=== PATIENT | male | born 1950 | race Caucasian/White ===

== ENCOUNTER → 2016-08-27 | Outpatient (CLI) | payer OTHER ==
--- NOTE | 2016-08-27 15:25 | US ---
EXAMINATION TYPE: US kidneys/renal and bladder DATE OF EXAM: 08/27/2016 2:45 PM COMPARISON: NONE CLINICAL HISTORY: R33.9 Retention of Urine Unspec. EXAM MEASUREMENTS: Right Kidney: 10.5 x 4.5 x 4.8 cm Left Kidney: 10.7 x 5.3 x 4.9 cm Post Void Residual Volume: 77.5 Right Kidney: No hydronephrosis or masses seen Left Kidney: No hydronephrosis or masses seen Bladder: not fully distended Abnormal Post Void Residual 77.5 cc There is no evidence for hydronephrosis at this point in time. No nephrolithiasis is seen. No stan s are identified. The urinary bladder is anechoic. Neither ureteral jets were seen. IMPRESSION: 1. NORMAL RENAL ULTRASOUND. 2. ABNORMALLY HIGH POST VOID RESIDUAL.
== END | disposition home or self-care (01) ==
LOC: RADUSWWP 14:05
PROVIDERS: ATTEND Family Medicine
DX: R93.49 Abnormal radiologic findings on diagnostic imaging of other urinary organs (principal); R33.9 Retention of urine, unspecified
CPT/HCPCS: 76770

== ENCOUNTER → 2017-12-27 | Outpatient (CLI) | payer MEDICARE, OTHER ==
[2017-12-27 08:32] LABS: ALT 44 U/L (21-72); AST 47 U/L (17-59); Albumin 4.7 g/dL (3.5-5.0); Alkaline Phosphatase 77 U/L (38-126); Anion Gap 14 mmol/L; Blood Urea Nitrogen 15 mg/dL (9-20); Calcium 9.6 mg/dL (8.4-10.2); Carbon Dioxide 19 mmol/L (22-30); Chloride 108 mmol/L (98-107); Glucose 122 mg/dL (74-99); Sodium 141 mmol/L (137-145); Total Bilirubin 0.8 mg/dL (0.2-1.3); Total Protein 8.9 g/dL (6.3-8.2)
[2017-12-27 08:40] LABS: Potassium 4.3 mmol/L (3.5-5.1)
--- NOTE | 2017-12-27 09:21 | FL ---
EXAMINATION TYPE: FL barium swallow DATE OF EXAM: 12/27/2017 CLINICAL HISTORY: Dysphagia with solids and liquids TECHNIQUE: A double contrast esophagram is performed utilizing air and barium. A total of 2 and 33 seconds of fluoroscopic time was utilized during procedure. 44 fluoroscopic images were saved. COMPARISON: None FINDINGS: The esophagus shows abnormal motility and delayed emptying into the stomach secondary to a nonobstructive narrowing just proximal to the gastroesophageal junction persistent on multiple views. In the upright position there is stasis of contrast in the distal esophagus proximal to this area of narrowing until a second swallow of contrast creates enough back pressure to overcome the stricture with eventual passage of contrast through the narrowing into the gastroesophageal junction. There is nonpropulsion of contrast through the midesophagus in the supine position. Moderate intraesophageal r eflux is noted to the level of the mid thoracic esophagus. No evidence of hiatal hernia. No significa nt gastroesophageal reflux was seen during real time performance of this study. Additionally trace pe netration is noted on 2 occasions. No evidence of aspiration. IMPRESSION: 1. Incomplete smooth long segment distal esophageal stricture just proximal to the gastroesophageal j unction. Endoscopy could further assess the stricture etiology. No suspicion for underlying mass as t here is no abrupt narrowing or edge. 2. Trace penetration on 2 occasions eliciting cough reflex with no aspiration. Speech therapy consult ation could be considered.
[2017-12-27 09:35] LABS: Basophils % (A) 1 %; Eosinophils # (A) 0.3 k/uL (0-0.7); Eosinophils % (A) 4 %; HCT 38.4 % (39.0-53.0); HGB 12.5 gm/dL (13.0-17.5); Lymphocytes # (A) 1.6 k/uL (1.0-4.8); Lymphocytes % (A) 26 %; MCH 27.3 pg (25.0-35.0); MCHC 32.5 g/dL (31.0-37.0); MCV 83.9 fL (80.0-100.0); Mean Platelet Volume 8.5; Monocytes # (A) 0.5 k/uL (0-1.0); Monocytes % (A) 9 %; Neutrophils # (A) 3.6 k/uL (1.3-7.7); Neutrophils % (A) 58 %; Platelet Count 183 k/uL (150-450); RBC 4.58 m/uL (4.30-5.90); RDW 14.2 % (11.5-15.5); WBC 6.2 k/uL (3.8-10.6)
[2017-12-27 16:06] LABS: Protein, Total 8.2 g/dL (6.2-8.2)
[2017-12-30 13:29] LABS: Albumin 4.33 g/dL (3.80-4.90)
== END | disposition home or self-care (01) ==
LOC: RADFLWHC 07:38
PROVIDERS: ATTEND Physician Assistant Medical
DX: K22.2 Esophageal obstruction (principal); J44.9 Chronic obstructive pulmonary disease, unspecified; I10 Essential (primary) hypertension; R77.1 Abnormality of globulin
CPT/HCPCS: 36415; 74220; 80053; 83880; 84165; 85025

== ENCOUNTER 2018-04-07 10:55 | Emergency (ER) | payer MEDICARE, OTHER ==
[2018-04-07 11:12] VITALS: BP 165/90; PULSE 76; RESP 16; TEMP 98.3
[2018-04-07] MEDS ORDERED: diphenhydrAMINE 50 MG/ML 1 ML VIAL IVP STA (11:31)
[2018-04-07] MEDS ORDERED: METOCLOPRAMIDE 5 MG/ML 2 ML VIAL IVP STA (11:31)
[2018-04-07] MEDS ORDERED: SODIUM CHLORIDE 0.9% 1,000 ML IV STA (11:31)
--- NOTE | 2018-04-07 11:47 | ED ---
General Adult HPI - General Chief complaint: Headache Stated complaint: Headache Time Seen by Provider: 04/07/18 11:20 Source: patient, RN notes reviewed Mode of arrival: wheelchair Limitations: no limitations - History of Present Illness Initial comments: Patient 68-year-old male presented to the emergency room today with chief complaint of a headache. He does admit that symptoms started 2 days ago. He states that he does have history of sinus infection. He states she's had increased sinus pressure on the right side. Patient currently rates it a 12/10. Does admit to increased rhinorrhea. Admits to cough congestion with positive sputum production that is been green in color. Patient states he was coming to the hospital have routine lab draw. States that he decided to come to the ER to be checked out. Patient does admit that he had a few episodes nausea and vomiting yesterday. Patient denies any recent fever, chills, shortness of breath, chest pain, back pain, abdominal pain, numbness or tingling, dysuria or hematuria, constipation or diarrhea, visual changes, or any other complaints. - Related Data Home Medications Medication Instructions Recorded Confirmed Citalopram Hydrobromide [CeleXA] 20 mg PO DAILY 03/30/15 04/07/18 Albuterol Sulfate [Proair Hfa] 1 - 2 puff INHALATION Q6HR PRN 04/07/18 04/07/18 Budesonide [Pulmicort Flexhaler] 1 puff INHALATION RT-BID 04/07/18 04/07/18 Buprenorphine HCl/Naloxone HCl 0.5 film SL DAILY@1200 04/07/18 04/07/18 [Suboxone 8 mg-2 mg Sl Film] Buprenorphine HCl/Naloxone HCl 1 film SL BID 04/07/18 04/07/18 [Suboxone 8 mg-2 mg Sl Film] Cetirizine HCl [Zyrtec] 10 mg PO DAILY 04/07/18 04/07/18 Gabapentin 600 mg PO TID 04/07/18 04/07/18 Hydrochlorothiazide [Hydrodiuril] 12.5 mg PO DAILY 04/07/18 04/07/18 Ibuprofen [Motrin] 600 mg PO BID PRN 04/07/18 04/07/18 Ipratropium-Albuterol Nebulize 3 ml INHALATION Q6H PRN 04/07/18 04/07/18 [Duoneb 0.5 mg-3 mg/3 ml Soln] Lisinopril 40 mg PO DAILY 04/07/18 04/07/18 Multivitamins, Thera [Multivitamin 1 tab PO DAILY 04/07/18 04/07/18 (formulary)] amLODIPine [Norvasc] 10 mg PO DAILY 04/07/18 04/07/18 cloNIDine HCL [Catapres] 0.3 mg PO TID 04/07/18 04/07/18 Previous Rx's Medication Instructions Recorded Amoxicillin/Potassium Clav 1 each PO Q12HR #20 tab 04/07/18 [Augmentin 875-125 Tablet] Fluticasone Propionate [Flonase 1 - 2 spray EA NOSTRIL DAILY 5 04/07/18 Allergy Relief] Days ml Allergies Allergy/AdvReac Type Severity Reaction Status Date / Time No Known Allergies Allergy Verified 04/07/18 11:54 Review of Systems ROS Statement: Those systems with pertinent positive or pertinent negative responses have been documented in the HPI. ROS Other: All systems not noted in ROS Statement are negative. Past Medical History Past Medical History: Hypertension Additional Past Medical History / Comment(s): bipolar History of Any Multi-Drug Resistant Organisms: None Reported Past Surgical History: Orthopedic Surgery Additional Past Surgical History / Comment(s): shoulder Past Psychological History: Bipolar Smoking Status: Current every day smoker Past Alcohol Use History: Occasional Past Drug Use History: None Reported General Exam - General Exam Comments Initial Comments: General: The patient is awake and alert, in no distress, and does not appear acutely ill. Eye: Pupils are equal, round and reactive to light. Extra-ocular movements are intact. No nystagmus. There is normal conjunctiva bilaterally. No signs of icterus. Ears, nose, mouth and throat: There are moist mucous membranes and no oral lesions. Tender palpation over the right maxillary and frontal sinuses. Neck: The neck is supple, there is no tenderness or JVD. Cardiovascular: There is a regular rate and rhythm. No murmur, rub or gallop is appreciated. Respiratory: Lungs are clear to auscultation, respirations are non-labored, breath sounds are equal. No wheezes, stridor, rales, or rhonchi. Gastrointestinal: Soft, non-distended, non-tender abdomen without masses or organomegaly noted. There is no rebound or guarding present. No CVA tenderness. Musculoskeletal: Normal ROM, no tenderness. Sensation intact. Strength 5/5. Pulses equal bilaterally 2+. Neurological: A&O x 3. CN II-XII intact, There are no obvious motor or sensory deficits. Coordination appears grossly intact. Speech is normal. Skin: Skin is warm and dry and no rashes or lesions are noted. Psychiatric: Cooperative, appropriate mood & affect, normal judgment. Limitations: no limitations Course Vital Signs 04/07/18 11:09 Temperature 98.3 F Pulse Rate 76 Respiratory 16 Rate Blood Pressure 165/90 O2 Sat by Pulse 97 Oximetry Medical Decision Making - Medical Decision Making Patient's CT of the head was negative for any acute abnormalities. Patient's old records will be obtained here in the emergency room. Patient had repeated attempts to have blood drawn. Nursing staff was unable to get any blood work. Patient then refused any further attempts. Patient urine sample reviewed no signs of infection. Urine sample clean. Patient does admit that these headaches are similar to sinus infections that she's had in the past but does have tenderness over the sinuses. His refused any further blood testing here in emergency room. He will be treated for sinus infection. Patient also admits that she's had some burning sensation with urination is worried about possible sexually transmitted disease. Patient will be treated given dose of azithromycin and Rocephin here in emergency room. Cultures have been added are currently pending. Patient is advised follow-up stab doctor over the next 2 days return here to emergency room for any other concerns. - Lab Data Lab Results 04/07/18 Range/Units 12:13 Urine Color Yellow Urine Appearance Clear (Clear) Urine pH 7.5 (5.0-8.0) Ur Specific Slaughter 1.024 (1.001-1.035) Urine Protein 1+ H (Negative) Urine Glucose (UA) Negative (Negative) Urine Ketones Negative (Negative) Urine Blood Negative (Negative) Urine Nitrite Negative (Negative) Urine Bilirubin Negative (Negative) Urine Urobilinogen 6.0 (<2.0) mg/dL Ur Leukocyte Esterase Negative (Negative) Urine RBC 1 (0-5) /hpf Urine WBC <1 (0-5) /hpf Urine Mucus Few H (None) /hpf Urine Opiates Screen Not Detected (NotDetected) Ur Oxycodone Screen Not Detected (NotDetected) Urine Methadone Screen Not Detected (NotDetected) Ur Propoxyphene Screen Not Detected (NotDetected) Ur Barbiturates Screen Not Detected (NotDetected) U Tricyclic Antidepress Not Detected (NotDetected) Ur Phencyclidine Scrn Not Detected (NotDetected) Ur Amphetamines Screen Not Detected (NotDetected) U Methamphetamines Scrn Not Detected (NotDetected) U Benzodiazepines Scrn Not Detected (NotDetected) Urine Cocaine Screen Not Detected (NotDetected) U Marijuana (THC) Screen Not Detected (NotDetected) Disposition Clinical Impression: Headache, Sinusitis, Concern about STD in male without diagnosis Disposition: HOME SELF-CARE Condition: Good Instructions: Acute Headache (ED) Additional Instructions: Please follow-up the family doctor over the next 2 days. Please use medications as prescribed. Please refrain from any contact until all symptoms are completely resolved. Return to emergency room for symptoms increase or worsen or for concerns. Prescriptions: Amoxicillin/Potassium Clav [Augmentin 875-125 Tablet] 1 each PO Q12HR #20 tab Fluticasone Propionate [Flonase Allergy Relief] 1 - 2 spray EA NOSTRIL DAILY 5 Days ml Is patient prescribed a controlled substance at d/c from ED?: No Referrals: [facility] [Primary Care Provider] - 1-2 days Time of Disposition: 13:19
--- NOTE | 2018-04-07 12:38 | CT ---
EXAMINATION TYPE: CT brain wo con DATE OF EXAM: 04/07/2018 COMPARISON: 03/22/2015 HISTORY: headache today with weakness CT DLP: 1155.[address] of the brain was performed. The ventricles, basal cisterns and sulci overlying the cerebral convexities demonstrate mild enlargem ent. There is no evidence for intracranial hemorrhage or sulcal effacement. There is decreased attenuation about the periventricular white matter and deep white matter of both c erebral hemispheres, compatible with chronic small vessel ischemia. Differential diagnosis does inclu de demyelination. No mass effects are seen.No midline shift. Osseous calvarium is intact. If symptoms persist consider MRI. IMPRESSION: 1. Age related atrophic and chronic small vessel ischemic change without acute intracranial process s een at this time.
[2018-04-07 12:53] LABS: Appearance,Urine Clear (Clear); Bilirubin,Urine Negative (Negative); Blood,Urine Negative (Negative); Color,Urine Yellow; Glucose,Urine (UA) Negative (Negative); Ketones,Urine Negative (Negative); Leukocyte Esterase,Urine Negative (Negative); Mucus,Urine Few /hpf; Nitrite,Urine Negative (Negative); PH, Urine 7.5 (5.0-8.0); Protein,Urine 1+ (Negative); RBC,Urine 1 /hpf (0-5); Specific Gravity,Urine 1.024 (1.001-1.035)
[2018-04-07 12:57] LABS: Amphetamine Screen,Urine Not Detected (NotDetected); Barbiturate Screen,Urine Not Detected (NotDetected); Benzodiazepines Screen,Urine Not Detected (NotDetected); Cocaine Screen,Urine Not Detected (NotDetected); Methadone Screen, Urine Not Detected (NotDetected); Opiate Screen,Urine Not Detected (NotDetected); Oxycodone Screen, Urine Not Detected (NotDetected); Phencyclidine Screen,Urine Not Detected (NotDetected); Tricyclic Antidepressant,Urine Not Detected (NotDetected); Urn Cannabinoid Scrn Not Detected (NotDetected)
[2018-04-07] MEDS ORDERED: AZITHROMYCIN 500 MG TAB PO STA (13:14)
[2018-04-07] MEDS ORDERED: cefTRIAXone 250 MG VIAL IM STA (13:14)
[2018-04-08 14:26] LABS: C. trachomatis,PCR Negative (Neg,Equiv); Chlamydia trachomatis Source Urine; N. gonorrhoeae,PCR Negative (Neg,Equiv); Neisseria Source Urine
== END 2018-04-07 13:41 | disposition home or self-care (01) ==
LOC: EC 10:55
DX: J32.9 Chronic sinusitis, unspecified (principal); Z20.2 Contact with and (suspected) exposure to infections with a predominantly sexual mode of transmission; R11.2 Nausea with vomiting, unspecified; I10 Essential (primary) hypertension; F31.9 Bipolar disorder, unspecified; F17.200 Nicotine dependence, unspecified, uncomplicated; Z79.51 Long term (current) use of inhaled steroids; Z79.899 Other long term (current) drug therapy
CPT/HCPCS: 93005; 81001; 87491; 87591; 80306; 70450; 99284; 96372; J0696

== ENCOUNTER → 2018-09-17 | Outpatient (CLI) | payer MEDICARE, OTHER ==
[2018-09-17 15:12] LABS: Basophils % (A) 0 %; Eosinophils # (A) 0.1 k/uL (0-0.7); Eosinophils % (A) 2 %; HCT 40.4 % (39.0-53.0); Lymphocytes # (A) 1.6 k/uL (1.0-4.8); Lymphocytes % (A) 24 %; MCH 27.6 pg (25.0-35.0); MCHC 32.1 g/dL (31.0-37.0); MCV 85.8 fL (80.0-100.0); Mean Platelet Volume 8.2; Monocytes # (A) 0.5 k/uL (0-1.0); Monocytes % (A) 7 %; Neutrophils # (A) 4.2 k/uL (1.3-7.7); Neutrophils % (A) 63 %; Platelet Count 184 k/uL (150-450); RDW 14.8 % (11.5-15.5); WBC 6.7 k/uL (3.8-10.6)
[2018-09-17 15:14] LABS: ALT 53 U/L (21-72); AST 56 U/L (17-59); Albumin 4.7 g/dL (3.5-5.0); Alkaline Phosphatase 75 U/L (38-126); Anion Gap 8 mmol/L; Blood Urea Nitrogen 13 mg/dL (9-20); Calcium 9.5 mg/dL (8.4-10.2); Carbon Dioxide 27 mmol/L (22-30); Chloride 105 mmol/L (98-107); Cholesterol 170 mg/dL (<200); Glucose 97 mg/dL (74-99); HDL Cholesterol 53 mg/dL (40-60); LDL Cholesterol,Calculated 96 mg/dL (0-99); Magnesium 1.3 mg/dL (1.6-2.3); Potassium 4.6 mmol/L (3.5-5.1); Sodium 140 mmol/L (137-145); Total Bilirubin 0.9 mg/dL (0.2-1.3); Total Protein 8.6 g/dL (6.3-8.2); Triglycerides 106 mg/dL (<150)
[2018-09-17 15:27] LABS: T4, Free (Free Thyroxine) 1.13 ng/dL (0.78-2.19)
[2018-09-17 19:01] LABS: Protein, Total 7.4 g/dL (6.2-8.2)
[2018-09-17 19:10] LABS: Vitamin D 25 Hydroxy 50.5 ng/mL (30.0-100.0)
[2018-09-18 12:23] LABS: Albumin 3.84 g/dL (3.80-4.90); Gamma Globulin 1.71 g/dL (0.70-1.50)
== END | disposition home or self-care (01) ==
LOC: RADCTMAIN 13:50
PROVIDERS: ATTEND Thoracic Surgery (Cardiothoracic Vascular Surgery)
DX: I71.2 Thoracic aortic aneurysm, without rupture (principal)
CPT/HCPCS: 80053; 80061; 82306; 82607; 83735; 84165; 84439; 84443; 85025

== ENCOUNTER → 2018-09-23 | Day surgery (SDC) | payer MEDICARE, OTHER ==
[2018-09-18 14:41] VITALS: BMI 34.4
[2018-09-23 10:09] VITALS: BP 160/97; RESP 18; TEMP 98
[2018-09-23 10:28] LABS: Blood Urea Nitrogen 11 mg/dL (9-20)
--- NOTE | 2018-09-23 13:38 | CT ---
EXAMINATION TYPE: CT angio chest DATE OF EXAM: 09/23/2018 COMPARISON: Radiograph 09/09/2018 HISTORY: 68-year-old male Thoracic aneurysm TECHNIQUE: Contiguous axial scanning of the chest performed with IV Contrast, patient injected with 1 00 mL of Isovue 370. Coronal/sagittal MIP reconstructions performed. 3-D reconstructions generated on a dedicated independent workstation. CT DLP: 498 mGycm Automated exposure control for dose reduction was used. FINDINGS: Retained metal particle in the left axilla and also in the anterior right mid chest. Heart upper limits of normal in size without pericardial effusion. Borderline ectatic ascending aorta at 3.6 cm. Ectatic ascending aorta 3.6 cm. Bovine configuration to the aortic arch. Upper descending thoracic aorta aneurysmal at 3.5 cm. Mid descending thoracic aorta is ectatic at 2.8 cm. Lower descending thoracic aorta ectatic at 2.7 cm. Upper abdominal aorta normal caliber at 2.3 cm. Prominent but nonenlarged 1.2 cm left axillary lymph node. No thoracic lymphadenopathy by CT size cri teria. Strandy atelectasis or scarring in the lung bases and posterior right lung. Mild underlying centrilob ular emphysema. Calcified granuloma superior segment left lower lobe at the midlung level. No consoli dation or pleural effusion. Visualized upper abdomen shows some retained metal debris within the posterior right pararenal space. Also at the left posterior costophrenic angle. Some wedge-shaped vascular shunting in the right live r lobe is noted. Some minimal residual infiltrate remains at the peripheral left base. Bones: ACDF hardware. Scattered [id number] degenerative disc disease midthoracic spine. IMPRESSION: 1. ECTATIC ASCENDING AORTA (3.6 CM), ANEURYSMAL UPPER DESCENDING THORACIC AORTA (3.5 CM), AND ECTATIC REMAINDER OF THE DESCENDING THORACIC AORTA MEASURING UP TO 2.8 CM. 2. SCATTERED RETAINED METALLIC DEBRIS, QUERY PRIOR GUNSHOT OR OTHER PENETRATING INJURY. 3. SOME MINIMAL RESIDUAL INFILTRATE REMAINS AT THE PERIPHERAL LEFT BASE. CONSIDER RADIOGRAPHIC FOLLOW -UP. 4. COPD WITH MILD EMPHYSEMA.
== END ==
LOC: CATHCVL 09:01
PROVIDERS: ATTEND Thoracic Surgery (Cardiothoracic Vascular Surgery)
DX: I71.2 Thoracic aortic aneurysm, without rupture (principal); Z79.899 Other long term (current) drug therapy; I10 Essential (primary) hypertension; E66.9 Obesity, unspecified; Z68.34 Body mass index [BMI] 34.0-34.9, adult; F17.210 Nicotine dependence, cigarettes, uncomplicated
CPT/HCPCS: 82565; 84520; 71275; Q9967

== ENCOUNTER → 2019-04-20 | Outpatient (CLI) | payer MEDICARE, OTHER ==
[2019-04-20 10:27] LABS: ALT 39 U/L (21-72); AST 35 U/L (17-59); African American GFR (CKD) >90 (>60 ml/min/1.73 sqM); Albumin 4.2 g/dL (3.5-5.0); Alkaline Phosphatase 70 U/L (38-126); Bilirubin, Delta 0.3 mg/dL (0.0-0.2); Bilirubin,Unconjugated 0.1 mg/dL (0.0-1.1); Blood Urea Nitrogen 14 mg/dL (9-20); Total Bilirubin 0.4 mg/dL (0.2-1.3); Total Protein 8.3 g/dL (6.3-8.2)
[2019-04-20 10:42] LABS: Prothrombin Time 10.5 sec (9.0-12.0)
[2019-04-20 11:05] LABS: HCT 44.1 % (39.0-53.0); HGB 14.6 gm/dL (13.0-17.5); MCH 28.5 pg (25.0-35.0); MCHC 33.1 g/dL (31.0-37.0); MCV 86.1 fL (80.0-100.0); Mean Platelet Volume 8.9; Platelet Count 120 k/uL (150-450); RBC 5.12 m/uL (4.30-5.90); RDW 14.3 % (11.5-15.5); WBC 7.1 k/uL (3.8-10.6)
[2019-04-20 11:52] LABS: Eosinophils # (M) 0.14 k/uL (0-0.7); Monocytes # (M) 0.78 k/uL (0-1.0); Neutrophils % (M) 49 %; Nucleated Red Blood Cells 0 /100 WBC (0-0); Total Cells Counted 100
--- NOTE | 2019-04-20 12:25 | US ---
EXAMINATION TYPE: US liver DATE OF EXAM: 04/20/2019 COMPARISON: NONE CLINICAL HISTORY: 69-year-old male B18.2 chronic viral hep C. TECHNIQUE: Multiple sonographic images of the right upper quadrant are obtained. FINDINGS: EXAM MEASUREMENTS: Liver Length: 15.5 cm Gallbladder Wall: .2 cm CBD: 5.3 mm Right Kidney: 11.2 x 5.1 x 4.7 cm Pancreas: Tail obscured by overlying bowel gas only the pancreatic body is visualized and shows no g ross abnormality. Suboptimal visualization of the pancreatic head and tail due to shadowing from veronica l gas. Liver: No focal lesion seen. Gallbladder: wnl Evidence for sonographic Fitch's sign: No CBD: wnl Right Kidney: wnl IMPRESSION: No focal liver lesion to suggest hepatoma by ultrasound. No cholelithiasis or biliary ductal dilatati on.
[2019-04-22 13:13] LABS: HCV Qualitative Result DETECTED (Not detected); HCV Quant Log 6.82 (<1.08)
== END ==
LOC: RADUSWWP 08:58
PROVIDERS: ATTEND Internal Medicine Gastroenterology
DX: R93.2 Abnormal findings on diagnostic imaging of liver and biliary tract (principal); B18.2 Chronic viral hepatitis C
CPT/HCPCS: 36415; 76705; 80076; 82565; 84520; 85025; 85610; 87522

== ENCOUNTER → 2019-12-03 | Outpatient (CLI) | payer MEDICARE, OTHER ==
--- NOTE | 2019-12-03 14:29 | US ---
EXAMINATION TYPE: US venous doppler duplex LE RT DATE OF EXAM: 12/03/2019 12:41 PM COMPARISON: NONE CLINICAL HISTORY: M79.661,R22.41 PAIN AND SWELLIGN IN RT LOWER LIMB. Pt states pain and numbness righ t foot SIDE PERFORMED: Right TECHNIQUE: The lower extremity deep venous system is examined utilizing real time linear array sonog rich with graded compression, doppler sonography and color-flow sonography. VESSELS IMAGED: External Iliac Vein (EIV) Common Femoral Vein Deep Femoral Vein Greater Saphenous Vein * Femoral Vein Popliteal Vein Small Saphenous Vein * Proximal Calf Veins (* superficial vessels) Right Leg: Negative for DVT IMPRESSION: No evidence for DVT.
== END | disposition home or self-care (01) ==
LOC: RADUSWWP 12:19
PROVIDERS: ATTEND Internal Medicine
DX: M79.661 Pain in right lower leg (principal); R22.41 Localized swelling, mass and lump, right lower limb
CPT/HCPCS: 93922